=== PATIENT | female | born 1965 | race African-American/Black ===

== ENCOUNTER → 2019-08-29 | Outpatient (CLI) | payer OTHER ==
[~2019-08-29] MED LIST: CONTRAST GIVEN. MC PRN
[2019-08-29] MEDS: IOHEXOL 240 MG/ML 50ML VIAL. PO ONE (08:45)
[2019-08-29] MEDS: IOHEXOL 300 MG/ML 100ML VIAL. IV ONE (09:09)
--- NOTE | 2019-08-29 10:29 | KCIC ---
Study: CT abdomen/pelvis with intravenous contrast Indication: Right upper quadrant pain. Comparison: None. Technique: Helical CT imaging performed of the abdomen and pelvis after the intravenous administration of 89 cc Omnipaque 300 contrast. Sagittal and coronal reformats were obtained. One or more of the following individualized dose reduction techniques were utilized for this examination: 1. Automated exposure control 2. Adjustment of the mA and/or kV according to patient size 3. Use of iterative reconstruction technique. Findings: Chest: Unremarkable. Liver: Incidental subcentimeter low-attenuation foci within the left hepatic lobe, images 17 and 18 series 2. In the absence of a known malignancy these are most likely small cysts or hemangiomas. No follow-up imaging is needed per consensus recommendation based on imaging criteria. Gallbladder/Biliary Tree: Unremarkable gallbladder. The common bile duct is within normal limits for diameter. Pancreas: Unremarkable. Spleen: Unremarkable. Adrenal Glands: Unremarkable. Kidneys/Ureters/Bladder: Unremarkable. Reproductive Organs: The uterus is not well delineated in keeping with provided history of partial hysterectomy. No adnexal mass. Colon: Mildly constipated state. Appendix: Not well visualized due to closely opposed bowel loops. No overt inflammatory changes at its expected location to suggest acute appendicitis. Small Bowel: Orally administered contrast passes through the majority of the small bowel without findings of obstruction. Stomach: Not well evaluated due to underdistention but no focal abnormality is appreciated. Vasculature: Patency of the portal veins and superior mesenteric vein. 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 No poststenotic dilatation. Normal aortic caliber. Lymph Nodes: No pathologically enlarged lymph nodes are identified. Peritoneum and Body Wall: Small fat-containing supraumbilical hernia, image 32 series 2, without complicating features. Bones: Levoconvex curvature of the lumbar to lower thoracic spine. Advanced facet degeneration at L4-L5 with associated grade 1 anterolisthesis of L4 on L5. The degree of central canal stenosis is present at L4-L5 that is not well characterized by technique. Right more so than left neural foraminal stenosis at L4-L5. Miscellaneous: None. Impression: 1. No acute abnormality seen throughout the abdomen or pelvis by CT. 2. 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 No poststenotic dilatation. Recommend correlation for symptoms of median arcuate ligament syndrome. 3. Advanced facet degeneration at L4-L5 contributing to grade 1 anterolisthesis of L4 on L5. There is associated central canal stenosis at this level which appears to be moderate but is not well assessed by technique. Note is also made of bilateral neural foraminal stenosis. If there are symptoms referrable to this region MRI would better characterize the degree of stenosis. 4. Mild constipation. Electronically signed by: ROSANNE MAYS MD (08/29/2019 10:26 AM) [id number]
== END | disposition home or self-care (01) ==
LOC: KCIC CT 07:56
PROVIDERS: ATTEND Family Medicine
DX: K42.9 Umbilical hernia without obstruction or gangrene (principal); K59.00 Constipation, unspecified; I77.4 Celiac artery compression syndrome; M47.816 Spondylosis without myelopathy or radiculopathy, lumbar region; M43.16 Spondylolisthesis, lumbar region; M48.061 Spinal stenosis, lumbar region without neurogenic claudication; M43.8X5 Other specified deforming dorsopathies, thoracolumbar region; Z90.710 Acquired absence of both cervix and uterus
CPT/HCPCS: 74177; Q9966; Q9967

== ENCOUNTER 2020-05-28 08:43 | Emergency (ER) | payer OTHER ==
[~2020-05-28] VITALS: Ht 162.6 cm; Wt 61.0 kg
[2020-05-28 08:48] VITALS: BP 122/73
[2020-05-28] MEDS ORDERED: KETOROLAC 60 MG/2 ML VIAL. IM ONE (09:15)
--- NOTE | 2020-05-28 09:22 | PHYS DOC ---
Past Medical History Past Medical History: Other Additional Past Medical Histor: "G6D DEFICIENT" Past Surgical History: Other Additional Past Surgical Histo: PARTIAL THYROIDECTOMY Smoking Status: Never Smoker Alcohol Use: None General Adult EDM: Chief Complaint: BACK INJURY HPI: HPI: Patient is a 54 year old female reports to the emergency department complaining of low back pain stating that at approximately 9:15 AM 2 days ago on Thursday she was lifting weights in a weightlifting class specifically doing lifting when she felt something pull in her low back. Patient states that she was able to complete her workout although she felt that her low back was sore. Patient states that evening she soaked in a hot Epson salt bath and went to bed. Patient states the next morning she woke up and she was unable to bend over and stand back up without pain in her low back that she rates at a 7-8/10 on a 1-10 pain scale. Patient states that when she is sitting still her pain is a 1-2/10 on a 1-10 pain scale. Patient states that she did not take any [id number] pain medication stating that she does not like to take pain medications at home as she has a high pain tolerance. Patient denies any loss of urine or bowel continence, denies numbness or tingling down her lower extremities. Patient states she is concerned that she might have a bulging disc. Patient states she does not have a history of bulging disks. Patient reports that her spine feels like it is bruised if you touch on it near her tailbone. Patient denies any other physical complaints or physical symptoms. Patient states she has no allergies to medications and she does not take any prescription medications at home. Patient reports having a hysterectomy in 2006. Review of Systems: Review of Systems: 14 body systems of review of systems have been reviewed. See HPI for pertinent positives and negative responses, otherwise all other systems are negative, nonpertinent or noncontributory. Heart Score: Risk Factors: Risk Factors: DM, Current or recent (<one month) smoker, HTN, HLP, family history of CAD, obesity. Risk Scores: Score 0 - 3: 2.5% MACE over next 6 weeks - Discharge Home Score 4 - 6: 20.3% MACE over next 6 weeks - Admit for Clinical Observation Score 7 - 10: 72.7% MACE over next 6 weeks - Early Invasive Strategies Allergies: Allergies: Allergies Coded Allergies Type Severity Reaction Last Updated Verified No Known Drug Allergies 08/29/19 No Physical Exam: PE: Constitutional: Well developed, well nourished, no acute distress, non-toxic appearance. Patient sitting in exam chair in no apparent distress. HENT: Normocephalic, atraumatic, bilateral external ears normal, oropharynx moist, no oral exudates, nose normal. Eyes: PERRLA, EOMI, conjunctiva normal, no discharge. Neck: Normal range of motion, no tenderness, supple, no stridor. Cardiovascular:Heart rate regular rhythm, no murmur Lungs & Thorax: Bilateral breath sounds clear to auscultation Abdomen: Bowel sounds normal, soft, no tenderness, no masses, no pulsatile masses. Skin: Warm, dry, no erythema, no rash. Back: No CVA tenderness elicited on right or left, pain to palpation midline spine lumbar area, no ecchymosis appreciated, no crepitus appreciated, limited passive range of motion related to patient's complaint of pain, 2+ dorsalis pedis/posterior tibial pulses bilaterally, no lower extremity swelling or edema appreciated. Extremities: No tenderness, no cyanosis, no clubbing, ROM intact, no edema. Neurologic: Alert and oriented X 3, normal motor function, normal sensory function, no focal deficits noted. Psychologic: Affect normal, judgement normal, mood normal. Current Patient Data: Vital Signs: Vital Signs Date Time Temp Pulse Resp B/P (MAP) Pulse Ox O2 Delivery O2 Flow Rate FiO2 05/28/20 08:48 98.2 74 16 122/73 (89) 100 Room Air 98.2 EKG: EKG: [] Radiology/Procedures: Radiology/Procedures: SEX: F EXAM STATUS: REG ER ORD. PHYSICIAN: SATNAM TALBOT APRN REASON: LUMBAR SPINE PAIN AFTER LIFTING HEAVY WEIGHT PROCEDURE: CT LUMBAR SPINE WO CONTRAST EXAM: Lumbar spine CT without contrast. HISTORY: Pain after lifting. TECHNIQUE: Computed tomographic images of the lumbar spine were obtained without contrast. Multiplanar reformatting was performed. *One or more of the following individualized dose reduction techniques were utilized for this examination: 1. Automated exposure control. 2. Adjustment of the mA and/or kV according to patient size. 3. Use of iterative reconstruction technique. COMPARISON: None. FINDINGS: There is grade 1 anterolisthesis of L4 on L5, measuring 8 mm. There is mild lumbar levoscoliosis centered at L3. There is mild multilevel endplate remodeling. There is advanced facet arthropathy at the mid and lower lumbar levels, described in detail below. There is no fracture. There is no suspicious osseous lesion. At T12-L1, there is mild left facet arthropathy. There is no stenosis. At L1-L2, there is mild left facet arthropathy. There is no stenosis. At L2-L3, there is mild bilateral facet arthropathy. There is no stenosis. At L3-L4, there is a disc bulge and endplate remodeling. There is mild right and moderate left facet arthropathy. There is no stenosis. At L4-L5, there is a disc bulge and endplate remodeling. There is severe bilateral facet arthropathy. There is grade 1 anterolisthesis. There is severe right and moderate left foraminal stenosis. There is moderate central canal stenosis. At L5-S1, there is a disc bulge and endplate remodeling. There is mild right facet arthropathy. There is mild bilateral foraminal stenosis. IMPRESSION: 1. Grade 1 anterolisthesis of L4 on L5 and mild lumbar scoliosis. 2. Multilevel degenerative change involving the lumbar spine, described in detail above. There is associated severe right and moderate left foraminal and moderate central canal stenosis at L4-L5 and mild lateral foraminal stenosis at L5-S1. Electronically signed by: Wilma Hogue MD (05/28/2020 9:34 AM) [id number] DICTATED and SIGNED BY: WILMA HOGUE MD DATE: 05/28/20 [id number] 0 Course & Med Decision Making: Course & Med Decision Making Pertinent Labs and Imaging studies reviewed. (See chart for details) 54-year-old female, vital signs reviewed, reports low back pain after lifting weights during a weightlifting class II days ago, physical exam revealed pain to palpation midline lumbar spine area, ED [id number] mg IM Toradol, CT lumbar spine without contrast, will consider IM steroid injection after CT results read. CT lumbar spine interpreted by house radiologist concerning for arthritic and degenerative changes. Discussed findings with patient, will start on prescription for 600 mg ibuprofen, discussed with patient to follow-up with primary care this week, will give work excuse for 2 days. Patient gave verbal understanding of discharge home instructions, prescription instructions, follow- up with primary care this week, return to ER precautions and concerns, had no further questions or concerns and was discharged home without incident. Impression: Rachael Ulloa Disclaimer: Laila Disclaimer: This electronic medical record was generated, in whole or in part, using a voice recognition dictation system. Departure Departure Impression: Primary Impression: Lumtiffanigo Qualified Codes: M54.5 - Low back pain Disposition: 01 DC HOME SELF CARE/HOMELESS Condition: IMPROVED Referrals: CAROLINA DIAS DO (PCP) Patient Instructions: Back Pain, Adult Additional Instructions: Take medications as prescribed, follow-up with your primary care doctor for further treatment of your low back pain and CT findings. Return to the emergency department for worsening symptoms or other concerns. EMERGENCY DEPARTMENT GENERAL DISCHARGE INSTRUCTIONS Thank you for coming to [facility] Emergency Department (ED) today and trusting us with you care. We trust that you had a positive experience in our Emergency Department. If you wish to speak to the department management, you may call the Director at [phone]. YOUR FOLLOW UP INSTRUCTIONS ARE FOLLOWS: 1. Do you have a private Doctor? If you do not have a private doctor, please ask for a resource list of physicians or clinics that may be able to assist you with follow up care. 2. The Emergency Physicain has interpreted your x-rays. The X-Ray specialist will also review them. If there is a change in the findings, you will be notified in 48 hours when at all possible. 3. A lab test or culture has been done, your results will be reviewed and you will be notified if you need a change in treatment. ADDITIONAL INSTRUCTIONS AND INFORMATION: 1. Your care today has been supervised by a physician who is specially trained in emergency care. Many problems require more than one evaluation for a complete diagnosis and treatment. We recommend that you schedule your follow up appointment as recommended to ensure complete treatment of you illness or injury. If you are unable to obtain follow up care and continue to have a problem, or if your condition worsens, we recommend that you return to the ED. 2. We are not able to safely determine your condition over the phone nor are we able to give sound medical advice over the phone. For these safety reasons, if you call for medical advice we will ask you to come to the ED for further evaluation. 3. If you have any questions regarding these discharge instructions please call the ED at [phone]. SAFETY INFORMATION: In the interest of safety, wellness, and injury prevention; we encourage you to wear your sealbelt, if you smoke; quite smoking, and we encourage family to use a protective helmet for bicycling and other sporting events that present an increased risk for head injury. IF YOUR SYMPTOMS WORSEN OR NEW SYMPTOMS DEVELOP, OR YOU HAVE CONCERNS ABOUT YOUR CONDITION; OR IF YOUR CONDITION WORSENS WHILE YOU ARE WAITING FOR YOUR FOLLOW UP APPOINTMENT; EITHER CONTACT YOUR PRIMARY CARE DOCTOR, THE PHYSICIAN WHOSE NAME AND NUMBER YOU WERE GIVEN, OR RETURN TO THE ED IMMEDIATELY. Scripts Ibuprofen (IBUPROFEN) 600 Mg Tablet 600 MG PO TID PRN PRN for INFLAMMATION, #30 TAB 0 Refills Prov: SATNAM TALBOT APRN 05/28/20 SATNAM TALBOT APRN May 28, 2020 09:22
--- NOTE | 2020-05-28 09:36 | RAD ---
EXAM: Lumbar spine CT without contrast. HISTORY: Pain after lifting. TECHNIQUE: Computed tomographic images of the lumbar spine were obtained without contrast. Multiplana r reformatting was performed. *One or more of the following individualized dose reduction techniques were utilized for this examina tion: 1. Automated exposure control. 2. Adjustment of the mA and/or kV according to patient size. 3. Use of iterative reconstruction technique. COMPARISON: None. FINDINGS: There is grade 1 anterolisthesis of L4 on L5, measuring 8 mm. There is mild lumbar levoscol iosis centered at L3. There is mild multilevel endplate remodeling. There is advanced facet arthropat hy at the mid and lower lumbar levels, described in detail below. There is no fracture. There is no s uspicious osseous lesion. At T12-L1, there is mild left facet arthropathy. There is no stenosis. At L1-L2, there is mild left facet arthropathy. There is no stenosis. At L2-L3, there is mild bilateral facet arthropathy. There is no stenosis. At L3-L4, there is a disc bulge and endplate remodeling. There is mild right and moderate left facet arthropathy. There is no stenosis. At L4-L5, there is a disc bulge and endplate remodeling. There is severe bilateral facet arthropathy. There is grade 1 anterolisthesis. There is severe right and moderate left foraminal stenosis. There is moderate central canal stenosis. At L5-S1, there is a disc bulge and endplate remodeling. There is mild right facet arthropathy. There is mild bilateral foraminal stenosis. IMPRESSION: 1. Grade 1 anterolisthesis of L4 on L5 and mild lumbar scoliosis. 2. Multilevel degenerative change involving the lumbar spine, described in detail above. There is ass ociated severe right and moderate left foraminal and moderate central canal stenosis at L4-L5 and mil d lateral foraminal stenosis at L5-S1. Electronically signed by: Sirisha Mack MD (05/28/2020 9:34 AM) [id number]
[2020-05-28] MEDS ORDERED: IBUP-1007 PO (10:20)
== END 2020-05-28 10:50 | disposition home or self-care (01) ==
LOC: ER 08:43
DX: M54.5 Low back pain (principal); M48.061 Spinal stenosis, lumbar region without neurogenic claudication; Z90.711 Acquired absence of uterus with remaining cervical stump; X50.9XXA Other and unspecified overexertion or strenuous movements or postures, initial encounter; Y93.89 Activity, other specified; Y92.89 Other specified places as the place of occurrence of the external cause; Y99.8 Other external cause status
CPT/HCPCS: 72131; 96372; 99284; J1885